=== PATIENT | male | born 1995 | race Caucasian/White ===

== ENCOUNTER 2017-12-02 13:23 | Emergency (ER) | payer OTHER ==
[2017-12-02 14:45] VITALS: BP 120/62
--- NOTE | 2017-12-02 16:03 | UC ---
Ear Complaint HPI - HPI Summary HPI Summary: right ear pain x 12 hours, with tenderness around the right catholic. Relieved with 200mg ibuprofen last night, but has not repeated the dose. No sore throat, cough or associated respiratory sx. 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 - History of Current Complaint Chief Complaint: UCEar Stated Complaint: RIGHT EAR COMPLAINT Time Seen by Provider: 12/02/17 15:53 Hx Obtained From: Patient Onset/Duration: Gradual Onset, Lasting Days - 1 Severity Initially: Mild Severity Currently: Mild Pain Intensity: 4 - Allergies/Home Medications Allergies/Adverse Reactions: Allergies Allergy/AdvReac Type Severity Reaction Status Date / Time No Known Allergies Allergy Verified 12/02/17 14:46 Home Medications: Home Medications Ibuprofen TAB* [Advil TAB*] 200 mg PO ONCE PRN 12/02/17 [History Confirmed 12/02] PMH/Surg Hx/FS Hx/Imm Hx Previously Healthy: Yes - Surgical History Surgical History: Yes Surgery Procedure, Year, and Place: ear tubes - Family History Known Family History: Positive: None - parents and grandparents living and healthy - Social History Occupation: Employed Full-time - works as a [employer] Lives: With Family Alcohol Use: None Substance Use Type: None Smoking Status (MU): Never Smoked Tobacco Household Exposure Type: Cigarettes - Immunization History Vaccination Up to Date: Yes Review of Systems Constitutional: Negative Skin: Negative Eyes: Negative ENT: Ear Ache, Other - has mild right jaw pain sometimes. No hx of wisdom tooth extraction. Respiratory: Negative Cardiovascular: Negative Gastrointestinal: Negative Genitourinary: Negative Motor: Negative Neurovascular: Negative Musculoskeletal: Negative Neurological: Negative Psychological: Negative Is Patient Immunocompromised?: No All Other Systems Reviewed And Are Negative: Yes Physical Exam Triage Information Reviewed: Yes Appearance: Well-Appearing, Pain Distress - mild Vital Signs: Initial Vital Signs Temp 98.7 F 12/02/17 14:39 Pulse 63 12/02/17 14:39 Resp 18 12/02/17 14:39 BP 120/62 12/02/17 14:39 Pulse Ox 99 12/02/17 14:39 Eyes: Positive: Conjunctiva Inflamed - bilateral injection, secondary to contacts. ENT: Positive: Pharyngeal erythema - mild, TMs normal - normal TMJ on the right , moderate cerumen partly obscures the TM, TM dull - left TM dull, opaque., TM red, Other - mild tenderness in the right TMJ. Negative: Tonsillar swelling, Tonsillar exudate, Trismus Dental Exam: Other - no apparent gum inflammation, has upper cap in place. Neck: Positive: Supple, Nontender, No Lymphadenopathy Respiratory: Positive: Lungs clear, Normal breath sounds Cardiovascular: Positive: RRR, No Murmur Neurological: Positive: Alert, Muscle Tone Normal Psychological Exam: Normal Skin Exam: Normal Ear Complaint Course/Dx - Differential Dx/Diagnosis Differential Diagnosis/HQI/PQRI: TMJ Syndrome Provider Diagnoses: Possible TMJ pain, possible dental pain. Discharge - Sign-Out/Discharge Documenting (check all that apply): Discharge - Discharge Plan Condition: Stable Disposition: HOME Patient Education Materials: Temporomandibular Disorder (ED) Referrals: Jaswinder Gallagher MD [Primary Care Provider] - Additional Instructions: It is most likely that the pain you are feeling in your ear is referred from the jaw or from wisdom teeth. I suggest using ibuprofen 600mg three times daily for several days. If the pain persists, I suggest a dental evaluation and possible imaging. - Billing Disposition and Condition Condition: STABLE Disposition: HOME
== END 2017-12-02 16:17 | disposition home or self-care (01) ==
LOC: UCCORT 13:23
DX: H92.01 Otalgia, right ear (principal); Z86.19 Personal history of other infectious and parasitic diseases
CPT/HCPCS: 99211; G0463